=== PATIENT | male | born 1945 | race Caucasian/White ===

== ENCOUNTER 2022-06-04 14:56 | Outpatient (CLI) | payer OTHER | END 2022-06-04 14:57 | disposition home or self-care (01) | LOC: CSHULT 14:56 | PROVIDERS: ATTEND Student in an Organized Health Care Education/Training Program | DX: M79.89 Other specified soft tissue disorders (principal) ==

== ENCOUNTER 2023-07-09 07:24 | Day surgery (SDC) | payer OTHER ==
[2023-07-09] MEDS ORDERED: Dextrose 50% Abboject 50 ML SYRINGE FS SCH (08:00)
[2023-07-09 08:12] VITALS: BP 152/83; TEMP 97.5
== END 2023-07-09 08:40 | disposition home or self-care (01) ==
LOC: CSHSDC 07:24
PROVIDERS: ATTEND Specialist
DX: I48.0 Paroxysmal atrial fibrillation (principal); I48.92 Unspecified atrial flutter; E11.22 Type 2 diabetes mellitus with diabetic chronic kidney disease; I13.0 Hypertensive heart and chronic kidney disease with heart failure and stage 1 through stage 4 chronic kidney disease, or unspecified chronic kidney disease; I50.22 Chronic systolic (congestive) heart failure; N18.9 Chronic kidney disease, unspecified; E78.2 Mixed hyperlipidemia; I25.10 Atherosclerotic heart disease of native coronary artery without angina pectoris; Z90.49 Acquired absence of other specified parts of digestive tract; Z95.818 Presence of other cardiac implants and grafts; Z88.2 Allergy status to sulfonamides; Z53.9 Procedure and treatment not carried out, unspecified reason
CPT/HCPCS: 36416; 93005; 93010; J7999